=== PATIENT | male | born 1945 | race Caucasian/White ===

== ENCOUNTER 2021-05-22 18:00 | Emergency (ER) | payer OTHER, SELFPAY ==
[2021-05-22 18:06] VITALS: BP 155/76; PULSE 100; RESP 20; TEMP 36.7; O2SAT 97; BMI 25.7
--- NOTE | 2021-05-22 18:35 | ED_ITS ---
HPI - Anxiety General Chief Complaint: Anxiety Stated Complaint: Unable to eat, personality change, crying a lot Time Seen by Provider: 05/22/21 18:10 Source: patient and family Mode of arrival: Family Vehicle History of Present Illness HPI narrative: 75-year-old gentleman with a history of anxiety depression, hypertension, neuropathic pain and is the primary caregiver for his who has significantly progressive Alzheimer's type dementia. A for the last number of years he has had no help. Two weeks ago he was able to hire in-home care that comes 5 days a week from 09:30 in the morning to 3:30 in the afternoon. He comes in accompanied by his sister with complaints of abrupt decompensation in the last 48 hours. His sister helps with history and states that he has been increasingly confused stumbling over words, excessive crying significant emotional outbursts including yelling at his which is a dramatic change in the last 48 hours. He feels that his anxiety has dramatically worsened over the last 2 weeks he has been having difficulty eating and over the last couple of months he has lost at least 12 lb. For his anxiety and depression he is followed by a nurse practitioner and currently on BuSpar 10 mg t.i.d., bupropion 150 mg b.i.d. and trazodone 25 mg t.i.d.. In the past he has been on 10 mg of Valium at and that has been weaned off. He does use THC tincture daily and reports that he uses ?the highest THC percentage I can get?. He has not been trying to balance the CBD component and his sister, who also uses regular THC reports that the dose he uses is dramatically elevated and almost caused her to hallucinate when she used the same dose. Related Data Home Medications Medication Instructions Recorded Confirmed albuterol sulfate 90 mcg/actuation 2 puff INHALATION PRN 05/22/21 aerosol inhaler bupropion HCl 150 mg 24 hr tablet, 150 mg PO BID 05/22/21 05/22/21 extended release buspirone 10 mg tablet 10 mg BID 05/22/21 05/22/21 buspirone 10 mg tablet 30 mg DAILY 05/22/21 05/22/21 ciclesonide 80 mcg/actuation 1 puff INHALATION DAILY 05/22/21 05/22/21 aerosol inhaler (Alvesco) gabapentin 300 mg capsule 300 mg TID 05/22/21 05/22/21 hydrochlorothiazide 12.5 mg capsule 12.5 mg DAILY 05/22/21 05/22/21 lisinopril 20 mg tablet 20 mg DAILY 05/22/21 05/22/21 metformin 500 mg tablet 500 mg BID 05/22/21 05/22/21 simvastatin 20 mg tablet 20 mg DAILY 05/22/21 05/22/21 trazodone 50 mg tablet 25 mg BID 05/22/21 05/22/21 Previous Rx's Medication Instructions Recorded clonazepam 0.5 mg tablet 0.5 mg PO DAILY #30 tab 05/22/21 Allergies Allergy/AdvReac Type Severity Reaction Status Date / Time No Known Drug Allergies Allergy Verified 05/22/21 18:06 Review of Systems Review of Systems Narrative: Chronically poor sleep secondary to caring for his demented , minimal appetite over the last 2 weeks Pertinent positive and negative findings as per HPI Remainder of review of systems is otherwise unremarkable for Constitutional: Fevers, chills, weakness ENT: No sore throat, neck pain, ear pain CV: Chest pain, palpitations, Respiratory: Cough, wheeze, dyspnea GI: Nausea, vomiting, diarrhea, : Dysuria, hematuria, Patient History Social History Smoking Status: Former smoker Smoking Status: Former smoker Substance Use Type: does not use Exam Narrative Exam Narrative: General: Healthy appearing, in no acute distress. Mild cognitive slowing, HEENT: Moist mucous membranes, normal sclera with reactive pupils, Neck: No JVD, supple Respiratory: Lungs are clear to auscultation, no wheezing no rales no rhonchi. Full and symmetrical air movement Cardiac: Regular rate and rhythm no murmurs no bruits Abdomen: Soft, nontender, good bowel tones, no flank pain Skin: Warm and dry, no rashes Neurologic: Grossly neurologically intact with no obvious asymmetries or abnormalities Extremities: No trauma, well perfused Psych: Cooperative, appropriate insight slightly flat affect, normal speech fluency, making a point to make eye contact Initial Vital Signs Initial Vital Signs: Vital Signs Temperature 98.1 F 05/22/21 18:06 Pulse Rate 100 H 05/22/21 18:06 Respiratory Rate 20 05/22/21 18:06 Blood Pressure 155/76 H 05/22/21 18:06 Pulse Oximetry 97 05/22/21 18:06 Course Orders Ordered: ED Orders 05/22/21 19:04 CT head/brain wo con Stat 05/22/21 19:05 XR chest 1V Stat 05/22/21 19:21 Complete Blood Count AUTO DIFF Stat Comprehensive Metabolic Panel Stat Free T3, Triiodothyronine Free Stat Free T4, Direct Thyroxine Stat Thyroid Stimulating Hormone Stat 05/22/21 19:[address] [facility] [place] - Power D[employer]en [employer] Stat Discontinued Medications Diazepam (Diazepam 5 Mg Tablet) 5 mg PO NOW ONE Stop: 05/22/21 19:01 Last Admin: 05/22/21 19:24 Dose: 5 mg Documented by: [email or web address] Diazepam (Diazepam 5 Mg Tablet) 5 mg PO NOW ONE Stop: 05/22/21 20:59 Last Admin: 05/22/21 21:06 Dose: 5 mg Documented by: Vital Signs Vital signs: Vital Signs - 8 hr 05/22/21 18:06 05/22/21 21:06 Temperature 98.1 F Pulse Rate 100 H 113 H Respiratory Rate 20 18 Blood Pressure 155/76 H 186/87 H Pulse Oximetry 97 98 MDM - Anxiety Lab Data Result diagrams: 05/22/21 19:21 05/22/21 19:21 Labs: Lab Results 05/22/21 05/22/21 05/22/21 Range/Units 19:21 19:21 19:21 WBC 9.6 (4.5-11.0) X10^3/uL RBC 4.14 L (4.5-5.9) X10^6/uL Hgb 12.7 L (13.5-17.5) g/dL Hct 37.5 L (41-53) % MCV 90.7 (80-100) fL MCH 30.7 (26-34) PG MCHC 33.8 (30-36) % RDW 13.3 (11.6-14.8) % Plt Count 388 (150-400) X10^3/uL Neut % (Auto) 69.9 (50-75) % Lymph % (Auto) 19.7 L (25-40) % [place] % (Auto) 7.1 (3-14) % Eos % (Auto) 1.4 L (2-4) % Baso % (Auto) 1.9 (0-2) % Neut # (Auto) 6700 (5240-0892) /uL Lymph # (Auto) 1900 (9634-3893) /uL [place] # (Auto) 700 (0-900) /uL Eos # (Auto) 100 (0-450) /uL Baso # (Auto) 200 H (0-100) /uL Sodium 133 L (137-145) mmol/L Potassium 4.7 (3.4-5.1) mmol/L Chloride 97 L (98-107) mmol/L Carbon Dioxide 27 (22-32) mmol/L BUN 22 H (9-20) mg/dL Creatinine 1.26 H (0.66-1.25) mg/dL Estimated GFR 56.1 L (>60) mL/min BUN/Creatinine Ratio 17.5 (6-22) Glucose 130 H (80-110) mg/dL Calcium 10.4 H (8.4-10.2) mg/dL Total Bilirubin 0.4 (0.2-1.3) mg/dL AST 22 (17-59) IU/L ALT 18 (<50) IU/L Alkaline Phosphatase 88 (38-126) U/L Total Protein 7.9 (6.3-8.2) g/dL Albumin 4.6 (3.5-5.0) g/dL Globulin 3.3 (1.7-4.1) g/dL Albumin/Globulin Ratio 1.4 (1.0-2.8) TSH 0.335 L (0.47-4.68) uIU/mL Point of Care Testing Glucose POC [address] scan - head: Radiologist's Impression: FINDINGS: Image quality: Excellent. CSF spaces: Basal cisterns are patent. No extra-axial fluid collections. The ventricles are symmetric in size and shape. Brain: No intracranial bleeds or masses. There is cerebral volume loss for age, with resultant ventricular and sulcal prominence. There are periventricular and deep white matter chronic small vessel ischemic changes. There is intracranial internal carotid artery atherosclerosis. Skull and face: Calvarium and visualized facial bones appear intact, without suspicious lesions. Sinuses: Visualized sinuses and mastoids are predominantly clear. IMPRESSION: No acute intracranial abnormality. Dictated by: Ovi Meyer M.D. on 05/22/2021 at 19:53 MDM Narrative Medical decision making narrative: 75-year-old gentleman presents with acute psychiatric decompensation. In listening to his history he was started on Valium at the age of 17 for anxiety has been on that for the majority of his life and fairly recently appropriately weaned off and is currently using trazo done, bupropion and buspirone. He is the primary caregiver for his increasingly demented and still sleeps in the same room and same bed as she does with recurrent awakenings to help with her care every night. He also has been using high potency THC. With the acute decompensation full medical workup was done today with no evidence of intracranial masses hemorrhage shifts for stroke. TSH was slightly suppressed the possibility of hyperthyroidism is entertained , T3 and T4 currently pending. He is given 5 mg of Valium and is doing moderately better, speech is much more fluent and he notes that he may have a bit of appetite returning. At this point he is medically stable have made a number of recommendations, all of which he agrees with. 1. needs to do additional research with dementia care units in addition to continuing the home health care that started 2 weeks ago. 2. Schedule an appointment with a psychiatrist to confirm diagnoses and suggest any medicine management changes. I suspect that generalized anxiety disorder is going to be an appropriate diagnosis in addition to depression and he may actually do far better with a small amount of benzodiazepine in addition to current medications. Also, the Wellbutrin he currently is taking may be overly stimulating and he may do better with an SSRI or an SNRI. 3. Suggested that if he chooses to continue using marijuana that he use a blend that has lower percentage THC and a higher percentage of CBD to avoid the over stimulating effect of some of the dramatically high potency THC only plants available. 4. Will ask him to add .5 mg of clonazepam to his morning routine. I do think the addition of a benzodiazepine is going to be helpful for him overall however, Given his long history with Valium, I think a different medication with the goal of decreasing daytime anxiety may be more effective at this time. Discharge Plan Departure Patient Disposition: Home Clinical Impression: Generalized anxiety disorder, Acute situational disturbance Depression Qualifiers: Depression Type: unspecified Qualified Code(s): F32.9 - Major depressive disor jocelin, single episode, unspecified Instructions: DI for Anxiety -- Adult Activity Restrictions/Additional Instructions: Thank you for coming in today Your medical workup was very reassuring. I am not finding and acute medical reason to explain your increased anxiety and loss of appetite at this time. We talked about a number of suggestions that may help they are outlined below: 1. More research into dementia care units in addition to continuing the home health care that started 2 weeks ago. 2. Schedule an appointment with a psychiatrist to confirm diagnoses and suggest any medicine management changes. I suspect that generalized anxiety disorder is going to be an appropriate diagnosis in addition to depression and he you actually do far better with a small amount of benzodiazepine in addition to current medications. Also, the Wellbutrin you are currently taking may be overly stimulating and you may do better with an SSRI or an SNRI. Do NOT stop your wellbutrin unless your psychiatric provider tells you to. 3. if you choose to continue using marijuana, use a blend that has lower percentage THC and a higher percentage of CBD to avoid the over stimulating effect of some of the dramatically high potency THC only plants available. 4. add .5 mg of clonazepam in the morning . This is a long acting benzodiazepine similar to valium. Prescriptions: New clonazepam 0.5 mg tablet 0.5 mg PO DAILY Qty: 30 RF: 1 No Action gabapentin 300 mg capsule 300 mg TID RF: 0 metformin 500 mg tablet 500 mg BID RF: 0 bupropion HCl 150 mg tablet extended release 24 hr 150 mg PO BID RF: 0 trazodone 50 mg tablet 25 mg BID RF: 0 lisinopril 20 mg tablet 20 mg DAILY RF: 0 simvastatin 20 mg tablet 20 mg DAILY RF: 0 buspirone 10 mg tablet 10 mg BID RF: 0 buspirone 10 mg tablet 30 mg DAILY RF: 0 hydrochlorothiazide 12.5 mg capsule 12.5 mg DAILY RF: 0 albuterol sulfate 90 mcg/actuation HFA aerosol inhaler 2 puff INHALATION PRN (Reason: asthma) RF: 0 Alvesco 80 mcg/actuation HFA aerosol inhaler 1 puff INHALATION DAILY RF: 0 Referrals: Fiorella Sanchez ARNP [Primary Care Provider] -
--- NOTE | 2021-05-22 19:04 | DI.CT.S_ITS ---
PROCEDURE: CT HEAD/BRAIN WO CON INDICATIONS: Altered mental status TECHNIQUE: Noncontrast 4.5 mm thick angled axial sections acquired from the foramen magnum to the vertex, with coronal and sagittal reformats. For radiation dose reduction, the following was used: automated exposure control, adjustment of mA and/or kV according to patient size. COMPARISON: None. FINDINGS: Image quality: Excellent. CSF spaces: Basal cisterns are patent. No extra-axial fluid collections. The ventricles are symmetric in size and shape. Brain: No intracranial bleeds or masses. There is cerebral volume loss for age, with resultant ventricular and sulcal prominence. There are periventricular and deep white matter chronic small vessel ischemic changes. There is intracranial internal carotid artery atherosclerosis. Skull and face: Calvarium and visualized facial bones appear intact, without suspicious lesions. Sinuses: Visualized sinuses and mastoids are predominantly clear. IMPRESSION: No acute intracranial abnormality. Dictated by: Ovi Meyer M.D. on 05/22/2021 at 19:53 Approved by: Ovi Meyer M.D. on 05/22/2021 at 19:54
--- NOTE | 2021-05-22 19:05 | DI.RAD.S_ITS ---
PROCEDURE: XR CHEST 1V INDICATIONS: Altered mental status TECHNIQUE: One view of the chest was acquired. COMPARISON: None. FINDINGS: Surgical changes and devices: None. Lungs and pleura: Lungs are clear. No pleural effusions or pneumothorax. Mediastinum: Mediastinal contours appear normal. Heart size is normal. Bones and chest wall: No suspicious bony lesions. Overlying soft tissues appear unremarkable. IMPRESSION: No acute cardiopulmonary process demonstrated radiographically. Dictated by: Ovi Meyer M.D. on 05/22/2021 at 19:20 Approved by: Ovi Meyer M.D. on 05/22/2021 at 19:20
[2021-05-22] MEDS: diazePAM 5 MG TABLET PO ×2 (19:24→21:06)
[2021-05-22 19:30] LABS: Add Manual Diff / Slide Review NO; Basophils Absolute Auto 200 /uL (0-100); Basophils Percent Auto 1.9 % (0-2); Eosinophils Absolute Auto 100 /uL (0-450); Eosinophils Percent Auto 1.4 % (2-4); Hematocrit 37.5 % (41-53); Hemoglobin 12.7 g/dL (13.5-17.5); Lymphocytes Absolute Auto 1900 /uL (1100-4500); Lymphocytes Percent Auto 19.7 % (25-40); Mean Corpuscular HGB Conc 33.8 % (30-36); Mean Corpuscular Hemoglobin 30.7 PG (26-34); Mean Corpuscular Volume 90.7 fL (80-100); Monocytes Absolute Auto 700 /uL (0-900); Monocytes Percent Auto 7.1 % (3-14); Neutrophils Absolute Auto 6700 /uL (1500-7000); Neutrophils Percent Auto 69.9 % (50-75); Platelet Count 388 X10^3/uL (150-400); Red Blood Cell Count 4.14 X10^6/uL (4.5-5.9); Red Cell Distribution Width 13.3 % (11.6-14.8); White Blood Cell Count 9.6 X10^3/uL (4.5-11.0)
[2021-05-22 19:51] LABS: Alanine Aminotransferase 18 IU/L (<50); Albumin 4.6 g/dL (3.5-5.0); Albumin Globulin Ratio 1.4 (1.0-2.8); Alkaline Phosphatase 88 U/L (38-126); Aspartate Aminotransferase 22 IU/L (17-59); BUN Creatinine Ratio 17.5 (6-22); Bilirubin Total 0.4 mg/dL (0.2-1.3); Blood Urea Nitrogen 22 mg/dL (9-20); Calcium 10.4 mg/dL (8.4-10.2); Carbon Dioxide 27 mmol/L (22-32); Chloride 97 mmol/L (98-107); Estimated Glomerular Filt Rate 56.1 mL/min (>60); Globulin 3.3 g/dL (1.7-4.1); Glucose 130 mg/dL (80-110); HEMOLYSIS < 15 (0-50); Potassium 4.7 mmol/L (3.4-5.1); Sodium 133 mmol/L (137-145); Total Protein 7.9 g/dL (6.3-8.2)
[2021-05-22 20:28] LABS: Thyroid Stimulating Hormone 0.335 uIU/mL (0.47-4.68)
[2021-05-22 21:06] VITALS: BP 186/87; PULSE 113; RESP 18; O2SAT 98
[2021-05-22 21:52] VITALS: BP 170/86; PULSE 90; RESP 14; TEMP 37; O2SAT 95
[2021-05-22 23:25] LABS: Free T4, Direct Thyroxine 1.35 ng/dL (0.78-2.19)
== END 2021-05-22 21:40 | disposition home or self-care (01) ==
PROVIDERS: Emergency Provider Emergency Medicine; PCP Nurse Practitioner Family
DX: F41.9 Anxiety disorder, unspecified (principal); F43.0 Acute stress reaction; F32.9 Major depressive disorder, single episode, unspecified; R41.82 Altered mental status, unspecified
CPT/HCPCS: 36415; 70450; 71045; 80053; 82962; 84439; 84443; 84481; 85025; 99283; 99284